=== PATIENT | female | born 2000 | race Caucasian/White ===

== ENCOUNTER 2025-09-08 09:17 | Emergency (ER) | payer OTHER ==
[~2025-09-08] VITALS: Ht 154.9 cm; Wt 57.0 kg
[2025-09-08 10:38] LABS: BASO # 0.0 10^3/uL (0.0-0.2); BASO % 0.2 % (0.0-1.0); EOS # 0.1 10^3/uL (0.0-0.5); EOS % 2.4 % (0.0-3.0); LYMPH # 1.4 10^3/uL (1.5-5.0); LYMPH % 26.3 % (24.0-44.0); MONO # 0.4 10^3/uL (0.0-0.8); MONO % 7.1 % (2.0-8.0); NEUTROPHILS # 3.4 10^3/uL (1.5-8.5); NEUTROPHILS % 63.8 % (36.0-66.0)
[2025-09-08] MEDS: ACETAMINOPHEN *IV* 1,000 MG in IV 1 EA IV ONE (11:48)
[2025-09-08 12:00] LABS: HCG, SERUM QUALITATIVE NEGATIVE (NEGATIVE)
[2025-09-08 12:07] LABS: ALT/SGPT 17 U/L (7.0-40); AST/SGOT 23 U/L (<34); CALCIUM LEVEL 8.6 MG/DL (8.5-10.1); CARBON DIOXIDE LEVEL 24 MMOL/L (20-31); CHLORIDE LEVEL 109 MMOL/L (98-107); CREATININE FOR GFR 0.44 MG/DL (0.55-1.30); GLOMERULAR FILTRATION RATE > 90.0 (>60); POTASSIUM SERUM 4.0 MMOL/L (3.5-5.1); SODIUM LEVEL 140 MMOL/L (136-145)
[2025-09-08] MEDS ORDERED: ISOVUE-370 76% 100 ML VIAL As Ordered ONE (13:02)
[2025-09-08 13:24] LABS: KETONE, URINE AUTO RFX NEGATIVE (NEGATIVE); LEUKOCYTE ESTERASE UR AUTO RFX NEGATIVE (NEGATIVE); MUCUS, URINE RFX SMALL (NEGATIVE); NITRITE, URINE AUTO RFX NEGATIVE (NEGATIVE); RBC, URINE AUTO RFX 0 /HPF (0-3); SQUAM EPITHELIAL CELL UR AURFX 2 /HPF (0-6); WBC, URINE AUTO RFX 0 /HPF (0-3)
[2025-09-08 14:00] VITALS: BP 110/61; TEMP 98.5; O2SAT 100
== END 2025-09-08 14:09 | disposition home or self-care (01) ==
LOC: M ED 09:17
DX: N83.291 Other ovarian cyst, right side (principal); R10.31 Right lower quadrant pain
CPT/HCPCS: 36415; 74177; 76830; 76856; 80047; 80048; 80076; 81001; 83690; 84703; 85025; 93041; 93976; 96365; 99285; J0134; Q9967